=== PATIENT | female | born 1950 ===

== ENCOUNTER 2023-04-06 22:56 | Emergency (ER) | payer OTHER, MEDICAID ==
[2023-04-07] MEDS ORDERED: Ketorolac Tromethamine 30 MG/ML VIAL ONE (00:40)
[2023-04-07] MEDS ORDERED: predniSONE 20 MG TAB ONE (00:40)
[2023-04-07] MEDS ORDERED: Cyclobenzaprine 10 MG TAB ONE (00:40)
== END 2023-04-07 01:00 | disposition home or self-care (01) ==
LOC: ERS 22:56
DX: M54.50 Low back pain, unspecified (principal); F17.210 Nicotine dependence, cigarettes, uncomplicated; I10 Essential (primary) hypertension; Z79.899 Other long term (current) drug therapy
CPT/HCPCS: 72100; 96372; J1885; J7512